=== PATIENT | female | born 1945 | race Caucasian/White ===

== ENCOUNTER → 2021-10-29 | Outpatient (CLI) | payer MEDICARE ==
--- NOTE | 2021-10-30 11:43 | RAD ---
XR CHEST 2V INDICATION: SHORT OF BREATH X 3 WEEKS . COMPARISON STUDY: None. FINDINGS: Lungs: Normal lung volume. Slight interstitial prominence. Pleura: Small left and trace right pleural effusions. Heart and Mediastinum: Cardiomegaly. The great vessels of the thorax are normal. Bones and Soft Tissues: Degenerative changes of the spine. IMPRESSION: 1. Slight interstitial prominence, which may reflect trace interstitial edema. 2. Small left and trace right pleural effusions. Electronically signed by: Steve Moss MD (10/29/2021 5:11 PM) [id number]
== END ==
LOC: RAD 12:35
PROVIDERS: ATTEND Internal Medicine
DX: I51.7 Cardiomegaly (principal); M47.814 Spondylosis without myelopathy or radiculopathy, thoracic region
CPT/HCPCS: 71046

== ENCOUNTER → 2021-11-11 | Outpatient (CLI) | payer MEDICARE ==
--- NOTE | 2021-11-11 12:43 | CARD ---
MR#: [id number] Date of Study: 11/11/2021 Ordering Physician: NAVA BRICEÑO, Referring Physician: Missy HO: Niranjan Reed [facility] APPROVED REPORT EXAM: Two-dimensional and M-mode echocardiogram with Doppler and color Doppler. Other Information Quality : GoodHR: 102bpm Rhythm : Tachycardia INDICATION Dyspnea RISK FACTORS Hypertension Hyperlipidemia 2D DIMENSIONS Left Atrium(2D)5.0 (1.6-4.0cm)IVSd1.1 (0.7-1.1cm) Aortic Root(2D)3.0 (2.0-3.7cm)LVDd5.5 (3.9-5.9cm) LVOT Diameter1.7 (1.8-2.4cm)PWd1.0 (0.7-1.1cm) LA Radyld21 (18-58mL)LVDs5.0 (2.5-4.0cm) FS (%) 9.7 %SV31.3 ml LVEF(%)21.0 (>50%) Aortic Valve AoV Peak Georges.123.4cm/sAoV VTI23.7cm AO Peak GR.6.1mmHgLVOT Peak Georges.115.4cm/s LVOT VTI 20.16cmAO Mean GR.4mmHg RUBIN (VMAX)2.62av3GRP (VTI)1.99cm2 Mitral Valve MV E Qsudujbl574.0cm/sMV E Peak Gr.9mmHg MV DECEL [id number] A Cgymqnub104.0cm/s MV E Mean Gr.4mmHgE/A Ratio1.3 Pulmonary Valve PV Peak Wftaukfk64.8cm/sPV Peak Grad.4mmHg Tricuspid Valve TR P. Xehjjsia208hl/sTR Peak Gr.48mmHg Pulmonary Vein S1 Xcqovtkr47.2cm/sD2 Gnrcqclc66.5cm/s LEFT VENTRICLE The left ventricle is normal size. There is normal left ventricular wall thickness. The ejection frac tion is severely impaired. The Ejection Fraction is 20-25%. Wall motion suggestive of conduction defe ct, otherwise there is severe global hypokinesis of the left ventricle. Tissue Doppler imaging reveal s moderate left ventricular diastolic dysfunction. No left ventricle thrombus noted on this study. Th ere is no ventricular septal defect visualized. There is no left ventricular aneurysm. There is no ma ss noted in the left ventricle. RIGHT VENTRICLE The right ventricle is normal size. There is normal right ventricular wall thickness. The right ventr icular systolic function is normal. ATRIA The left atrium is moderately dilated. The right atrium is mildly dilated. The interatrial septum is intact with no evidence for an atrial septal defect or patent foramen ovale as noted on 2-D or Dopple r imaging. AORTIC VALVE The aortic valve is normal in structure and function. Doppler and Color Flow revealed no significant aortic regurgitation. There is no significant aortic valvular stenosis. There is no aortic valvular v egetation. MITRAL VALVE The mitral valve is mildly thickened with restricted posterior leaflet. There is no evidence of kristi l valve prolapse. There is no mitral valve stenosis. Doppler and Color-flow revealed moderate mitral regurgitation. TRICUSPID VALVE The tricuspid valve is normal in structure and function. Doppler and Color Flow revealed moderate tri cuspid regurgitation. The PA pressure was estimated at 50-55 mmHg. There is no tricuspid valve prolap se or vegetation. There is no tricuspid valve stenosis. PULMONIC VALVE Doppler and Color Flow revealed no pulmonic valvular regurgitation. There is no pulmonic valvular david nosis. GREAT VESSELS The aortic root is normal in size. The ascending aorta is normal in size. The pulmonary artery is nor mal. The IVC is normal in size and collapses >50% with inspiration. PERICARDIAL EFFUSION There is no pleural effusion. Trivial pericardial effusion noted. Critical Notification Critical Value: Yes <Conclusion> The ejection fraction is severely impaired. The Ejection Fraction is 20-25%. Wall motion suggestive of conduction defect, otherwise there is severe global hypokinesis of the left ventricle. Doppler and Color-flow revealed moderate mitral regurgitation. Doppler and Color Flow revealed moderate tricuspid regurgitation. The PA pressure was estimated at 50 -55 mmHg. Signed by : Jos Wang, Electronically Approved : 11/11/2021 12:43:23
== END ==
LOC: ECHO 07:53
PROVIDERS: ATTEND Internal Medicine
DX: I08.1 Rheumatic disorders of both mitral and tricuspid valves (principal); I50.9 Heart failure, unspecified
CPT/HCPCS: 93306